=== PATIENT | male | born 1955 | race Caucasian/White ===

== ENCOUNTER 2017-01-22 16:55 | Emergency (ER) | payer OTHER ==
[~2017-01-22 16:55] MED LIST: TOPAMAX25 M1
[2017-01-22] MEDS ORDERED: DULOXETINE30 MG PO (17:08)
[2017-01-22] MEDS ORDERED: ASPIR LOW81 MG PO (17:08)
[2017-01-22 18:57] VITALS: BP 130/80
== END 2017-01-22 19:15 | disposition home or self-care (01) ==
LOC: ED 16:55
DX: R68.89 Other general symptoms and signs (principal)
CPT/HCPCS: J2405; J7030

== ENCOUNTER → 2018-04-30 | Outpatient (CLI) | payer BC ==
[~2018-04-30] MED LIST changes: +ASPIR LOW81 MG PO; +DULOXETINE30 MG PO
== END ==
LOC: LAB 09:30
DX: R07.9 Chest pain, unspecified (principal)

== ENCOUNTER → 2021-09-12 | Outpatient (CLI) | payer BC ==
[~2021-09-12] VITALS: Ht 182.9 cm; Wt 97.7 kg
[2021-09-12 13:25] VITALS: BP 148/75
[2021-09-12 13:45] LABS: BASO # 0.01 K/mm3 (0.02-0.10); HEMATOCRIT 46.2 % (42.0-52.0); HEMOGLOBIN 16.2 g/dL (13.5-18.0); LYMPH# 0.86 K/mm3 (1.50-4.00); MEAN CELL VOLUME 92 fl (78-100); MEAN CORPUSCULAR HEMOGLOBIN 32 pg (27-31); MEAN CORPUSCULAR HGB CONC 35 g/dL (33-37); MEAN PLATELET VOLUME 9.3 fl (7.4-10.4); MONO # 0.36 K/mm3 (0.20-0.80); NEU # 4.74 K/mm3 (1.40-6.50); PLATELET COUNT 134 K/mm3 (130-400); RED BLOOD COUNT 5.04 M/mm3 (4.20-5.60); RED CELL DISTRIBUTION WIDTH 11.8 % (11.5-14.5)
[2021-09-12 13:54] LABS: ALBUMIN 3.8 g/dL (3.4-4.8); POTASSIUM 3.5 mmol/L (3.5-5.1)
[2021-09-12 13:55] LABS: CALCIUM 9.1 mg/dL (8.3-10.5)
[2021-09-12 13:57] LABS: TOTAL PROTEIN 7.3 g/dL (6.2-8.1)
[2021-09-12 13:58] LABS: TOTAL BILIRUBIN 0.7 mg/dL (0.2-1.2)
== END ==
LOC: LAB 12:58
PROVIDERS: Nurse Practitioner Primary Care
DX: E86.0 Dehydration (principal); R06.02 Shortness of breath
CPT/HCPCS: J2405; J3360; J7120